=== PATIENT | female | born 1950 ===

== ENCOUNTER 2022-07-30 05:20 | Day surgery (SDC) | payer OTHER ==
[~2022-07-30 05:20] MED LIST: ALTACE10 MG PO; B COMPLEX1 EAC1 PO; CALTRATE 600+D1 EAC1 PO; CARDURA8 MG PO; CRESTOR5 MG PO; GLIMEPIRIDE4 MG PO; GLUMETZA1000 MG PO; LANTUS HE; MACRODANTIN100 M1 PO; MOTRIN PO; PEPCID PO; SYNTHROID100 MCG PO; TOPROL XL25 M1 PO
[2022-07-30] MEDS ORDERED: MACROBID 100 M100 MG PO (08:41)
[2022-07-30] MEDS ORDERED: ULTRACET PO (08:41)
== END 2022-07-30 13:00 | disposition home or self-care (01) ==
LOC: CIR.AMB 05:20
PROVIDERS: ATTEND Obstetrics & Gynecology Gynecology
DX: N81.11 Cystocele, midline (principal); N81.12 Cystocele, lateral; N81.5 Vaginal enterocele; Z20.822 Contact with and (suspected) exposure to COVID-19; Z91.013 Allergy to seafood; Z88.2 Allergy status to sulfonamides; Z88.8 Allergy status to other drugs, medicaments and biological substances; Z91.041 Radiographic dye allergy status; I10 Essential (primary) hypertension; E78.5 Hyperlipidemia, unspecified